=== PATIENT | female | born 1965 | race Caucasian/White ===

== ENCOUNTER → 2020-05-10 | Outpatient (CLI) | payer MEDICARE, SELFPAY ==
[~2020-05-10] MED LIST: AMBIEN5 MG PO; ASPIRIN CHEWABL81 MG PO; ASPIRIN EC81 MG PO; BENTYL 10MG CAP10 MG PO; CLOPIDOGREL75 MG PO; CRESTOR 10 MG T10 MG PO; CYMBALTA60 MG PO; FISH OIL EC 1,1 EACH PO; KEFLEX CAP 500500 MG PO; LIPITOR TAB 2020 MG PO; NOVOLOG FL100 UNIT/1 SQ; NOVOLOG MI100 UNIT/1 SC; PLAVIX 75 MG TA75 MG PO; TRESIBA FL100 UNIT/1 SQ
== END ==
LOC: WCC 08:20
PROC: 0KBW0ZZ Excision of Left Foot Muscle, Open Approach (ICD-10-PCS; principal; 2020-05-10)
DX: E11.621 Type 2 diabetes mellitus with foot ulcer (principal); L97.423 Non-pressure chronic ulcer of left heel and midfoot with necrosis of muscle; E11.52 Type 2 diabetes mellitus with diabetic peripheral angiopathy with gangrene; I96 Gangrene, not elsewhere classified; E11.69 Type 2 diabetes mellitus with other specified complication; M86.8X9 Other osteomyelitis, unspecified sites; E11.610 Type 2 diabetes mellitus with diabetic neuropathic arthropathy; I70.244 Atherosclerosis of native arteries of left leg with ulceration of heel and midfoot; L84 Corns and callosities; F17.218 Nicotine dependence, cigarettes, with other nicotine-induced disorders; M19.90 Unspecified osteoarthritis, unspecified site; Z79.4 Long term (current) use of insulin; Z79.02 Long term (current) use of antithrombotics/antiplatelets; Z79.2 Long term (current) use of antibiotics; Z79.899 Other long term (current) drug therapy

== ENCOUNTER → 2020-05-17 | Outpatient (CLI) | payer MEDICARE, SELFPAY | LOC: WCC 08:00 | PROC: 0JBR0ZZ Excision of Left Foot Subcutaneous Tissue and Fascia, Open Approach (ICD-10-PCS; principal; 2020-05-17) | DX: E11.621 Type 2 diabetes mellitus with foot ulcer (principal); L97.422 Non-pressure chronic ulcer of left heel and midfoot with fat layer exposed; E11.52 Type 2 diabetes mellitus with diabetic peripheral angiopathy with gangrene; I96 Gangrene, not elsewhere classified; E11.610 Type 2 diabetes mellitus with diabetic neuropathic arthropathy; I70.245 Atherosclerosis of native arteries of left leg with ulceration of other part of foot; F17.218 Nicotine dependence, cigarettes, with other nicotine-induced disorders; L84 Corns and callosities; M19.90 Unspecified osteoarthritis, unspecified site; E11.69 Type 2 diabetes mellitus with other specified complication; M86.8X9 Other osteomyelitis, unspecified sites; Z79.4 Long term (current) use of insulin; Z79.2 Long term (current) use of antibiotics; Z79.02 Long term (current) use of antithrombotics/antiplatelets; Z79.899 Other long term (current) drug therapy ==

== ENCOUNTER → 2020-05-24 | Outpatient (CLI) | payer MEDICARE, OTHER | LOC: WCC 08:00 | DX: E11.621 Type 2 diabetes mellitus with foot ulcer (principal); L97.521 Non-pressure chronic ulcer of other part of left foot limited to breakdown of skin; E11.42 Type 2 diabetes mellitus with diabetic polyneuropathy; I70.245 Atherosclerosis of native arteries of left leg with ulceration of other part of foot; L97.529 Non-pressure chronic ulcer of other part of left foot with unspecified severity; F17.210 Nicotine dependence, cigarettes, uncomplicated; L84 Corns and callosities; L97.428 Non-pressure chronic ulcer of left heel and midfoot with other specified severity; Z79.4 Long term (current) use of insulin | CPT/HCPCS: 97597 ==

== ENCOUNTER → 2020-05-26 | Outpatient (CLI) | payer MEDICARE | LOC: OPSV 05-25 15:00 | DX: M86.9 Osteomyelitis, unspecified (principal) | CPT/HCPCS: 96365; J1335 ==

== ENCOUNTER → 2020-05-27 | Outpatient (CLI) | payer MEDICARE | LOC: OPSV 08:03 | DX: M86.9 Osteomyelitis, unspecified (principal) | CPT/HCPCS: 96365; J1335 ==

== ENCOUNTER → 2020-05-29 | Outpatient (CLI) | payer MEDICARE, OTHER ==
[~2020-05-29] VITALS: Ht 170.2 cm; Wt 53.5 kg
== END ==
LOC: OPSV 07:58
DX: M86.9 Osteomyelitis, unspecified (principal)
CPT/HCPCS: 96365; J1335

== ENCOUNTER → 2020-05-30 | Outpatient (CLI) | payer MEDICARE, SELFPAY ==
[~2020-05-30] VITALS: Ht 170.2 cm; Wt 53.5 kg
== END ==
LOC: OPSV 07:55
DX: M86.9 Osteomyelitis, unspecified (principal)
CPT/HCPCS: 96365; J1335

== ENCOUNTER → 2020-05-31 | Outpatient (CLI) | payer MEDICARE, OTHER ==
[~2020-05-31] VITALS: Ht 170.2 cm; Wt 53.5 kg
== END ==
LOC: OPSV 06:40
DX: M86.9 Osteomyelitis, unspecified (principal)
CPT/HCPCS: 96365; J1335

== ENCOUNTER → 2020-05-31 | Outpatient (CLI) | payer MEDICARE, OTHER | LOC: WCC 08:00 | PROC: 0JBR0ZZ Excision of Left Foot Subcutaneous Tissue and Fascia, Open Approach (ICD-10-PCS; principal; 2020-05-31) | DX: E11.621 Type 2 diabetes mellitus with foot ulcer (principal); L97.422 Non-pressure chronic ulcer of left heel and midfoot with fat layer exposed; E11.610 Type 2 diabetes mellitus with diabetic neuropathic arthropathy; I70.245 Atherosclerosis of native arteries of left leg with ulceration of other part of foot; Z79.4 Long term (current) use of insulin; F17.210 Nicotine dependence, cigarettes, uncomplicated; L84 Corns and callosities ==

== ENCOUNTER → 2020-06-01 | Outpatient (CLI) | payer MEDICARE, SELFPAY ==
[2020-06-01 07:16] LABS: HEMOGLOBIN 11.3 gm/dl (12.3-15.3); RED BLOOD COUNT 3.95 M/UL (4.00-5.10); WHITE BLOOD COUNT 7.3 K/UL (4.5-11.0)
== END ==
LOC: OPSV 06:41
DX: M86.9 Osteomyelitis, unspecified (principal); R94.4 Abnormal results of kidney function studies; E87.5 Hyperkalemia; R94.5 Abnormal results of liver function studies
CPT/HCPCS: 80053; 85027; 96365; J1335

== ENCOUNTER → 2020-06-02 | Outpatient (CLI) | payer MEDICARE, OTHER | LOC: OPSV 06:43 | DX: M86.9 Osteomyelitis, unspecified (principal) | CPT/HCPCS: 96365; J1335 ==

== ENCOUNTER → 2020-06-04 | Outpatient (CLI) | payer MEDICARE, SELFPAY | LOC: EMI 08:41 | DX: R94.02 Abnormal brain scan (principal); I67.82 Cerebral ischemia; G93.5 Compression of brain | CPT/HCPCS: 70553; A9576 ==

== ENCOUNTER → 2020-06-07 | Outpatient (CLI) | payer MEDICARE, SELFPAY, OTHER | LOC: WCC 07:54 | PROC: 0JBR0ZZ Excision of Left Foot Subcutaneous Tissue and Fascia, Open Approach (ICD-10-PCS; principal; 2020-06-07) | DX: E11.621 Type 2 diabetes mellitus with foot ulcer (principal); L97.422 Non-pressure chronic ulcer of left heel and midfoot with fat layer exposed; E11.610 Type 2 diabetes mellitus with diabetic neuropathic arthropathy; I70.245 Atherosclerosis of native arteries of left leg with ulceration of other part of foot; E11.51 Type 2 diabetes mellitus with diabetic peripheral angiopathy without gangrene; Z79.4 Long term (current) use of insulin; F17.210 Nicotine dependence, cigarettes, uncomplicated; L84 Corns and callosities ==

== ENCOUNTER → 2020-06-14 | Outpatient (CLI) | payer MEDICARE, SELFPAY | LOC: WCC 07:55 | PROC: 0JBR0ZZ Excision of Left Foot Subcutaneous Tissue and Fascia, Open Approach (ICD-10-PCS; principal; 2020-06-14) | DX: E11.621 Type 2 diabetes mellitus with foot ulcer (principal); L97.422 Non-pressure chronic ulcer of left heel and midfoot with fat layer exposed; E11.52 Type 2 diabetes mellitus with diabetic peripheral angiopathy with gangrene; I70.262 Atherosclerosis of native arteries of extremities with gangrene, left leg; E11.610 Type 2 diabetes mellitus with diabetic neuropathic arthropathy; F17.218 Nicotine dependence, cigarettes, with other nicotine-induced disorders; L84 Corns and callosities; E11.69 Type 2 diabetes mellitus with other specified complication; M86.8X9 Other osteomyelitis, unspecified sites; M19.90 Unspecified osteoarthritis, unspecified site; E11.40 Type 2 diabetes mellitus with diabetic neuropathy, unspecified; Z79.4 Long term (current) use of insulin; Z79.02 Long term (current) use of antithrombotics/antiplatelets; Z79.2 Long term (current) use of antibiotics; Z79.899 Other long term (current) drug therapy ==

== ENCOUNTER → 2020-06-21 | Outpatient (CLI) | payer MEDICARE, SELFPAY, OTHER | LOC: WCC 08:00 | DX: E11.621 Type 2 diabetes mellitus with foot ulcer (principal); L97.422 Non-pressure chronic ulcer of left heel and midfoot with fat layer exposed; E11.610 Type 2 diabetes mellitus with diabetic neuropathic arthropathy; I70.245 Atherosclerosis of native arteries of left leg with ulceration of other part of foot; L84 Corns and callosities; L97.428 Non-pressure chronic ulcer of left heel and midfoot with other specified severity; E11.51 Type 2 diabetes mellitus with diabetic peripheral angiopathy without gangrene; Z79.4 Long term (current) use of insulin; F17.218 Nicotine dependence, cigarettes, with other nicotine-induced disorders; Z79.899 Other long term (current) drug therapy; Z79.02 Long term (current) use of antithrombotics/antiplatelets ==

== ENCOUNTER → 2020-06-28 | Outpatient (CLI) | payer MEDICARE, SELFPAY | LOC: WCC 07:59 | PROC: 0JBR0ZZ Excision of Left Foot Subcutaneous Tissue and Fascia, Open Approach (ICD-10-PCS; principal; 2020-06-28) | DX: E11.621 Type 2 diabetes mellitus with foot ulcer (principal); L97.422 Non-pressure chronic ulcer of left heel and midfoot with fat layer exposed; E11.52 Type 2 diabetes mellitus with diabetic peripheral angiopathy with gangrene; I70.244 Atherosclerosis of native arteries of left leg with ulceration of heel and midfoot; I96 Gangrene, not elsewhere classified; E11.610 Type 2 diabetes mellitus with diabetic neuropathic arthropathy; L84 Corns and callosities; E11.69 Type 2 diabetes mellitus with other specified complication; M86.8X9 Other osteomyelitis, unspecified sites; Z79.4 Long term (current) use of insulin; Z79.02 Long term (current) use of antithrombotics/antiplatelets; Z79.2 Long term (current) use of antibiotics; Z79.899 Other long term (current) drug therapy ==

== ENCOUNTER → 2020-07-05 | Outpatient (CLI) | payer MEDICARE, SELFPAY | LOC: WCC 07:58 | PROC: 0KBW0ZZ Excision of Left Foot Muscle, Open Approach (ICD-10-PCS; principal; 2020-07-05) | DX: E11.621 Type 2 diabetes mellitus with foot ulcer (principal); L97.423 Non-pressure chronic ulcer of left heel and midfoot with necrosis of muscle; E11.52 Type 2 diabetes mellitus with diabetic peripheral angiopathy with gangrene; I96 Gangrene, not elsewhere classified; I70.244 Atherosclerosis of native arteries of left leg with ulceration of heel and midfoot; E11.610 Type 2 diabetes mellitus with diabetic neuropathic arthropathy; L84 Corns and callosities; M19.90 Unspecified osteoarthritis, unspecified site; E11.69 Type 2 diabetes mellitus with other specified complication; M86.8X9 Other osteomyelitis, unspecified sites; Z79.4 Long term (current) use of insulin; Z79.02 Long term (current) use of antithrombotics/antiplatelets; Z79.2 Long term (current) use of antibiotics; Z79.899 Other long term (current) drug therapy ==

== ENCOUNTER → 2020-07-19 | Outpatient (CLI) | payer MEDICARE, SELFPAY | LOC: WCC 07:58 | DX: E11.621 Type 2 diabetes mellitus with foot ulcer (principal); L97.421 Non-pressure chronic ulcer of left heel and midfoot limited to breakdown of skin; E11.610 Type 2 diabetes mellitus with diabetic neuropathic arthropathy; F17.210 Nicotine dependence, cigarettes, uncomplicated; I73.9 Peripheral vascular disease, unspecified; Z79.4 Long term (current) use of insulin ==

== ENCOUNTER → 2020-08-02 | Outpatient (CLI) | payer MEDICARE, SELFPAY | LOC: WCC 11:30 | DX: E11.621 Type 2 diabetes mellitus with foot ulcer (principal); L97.422 Non-pressure chronic ulcer of left heel and midfoot with fat layer exposed; E11.610 Type 2 diabetes mellitus with diabetic neuropathic arthropathy; I70.245 Atherosclerosis of native arteries of left leg with ulceration of other part of foot; F17.218 Nicotine dependence, cigarettes, with other nicotine-induced disorders; L84 Corns and callosities; Z79.4 Long term (current) use of insulin | CPT/HCPCS: 97597 ==

== ENCOUNTER → 2020-11-09 | Outpatient (CLI) | payer MEDICARE, OTHER | LOC: WCC 11:00 | DX: E11.621 Type 2 diabetes mellitus with foot ulcer (principal); L97.522 Non-pressure chronic ulcer of other part of left foot with fat layer exposed; E11.610 Type 2 diabetes mellitus with diabetic neuropathic arthropathy; E11.51 Type 2 diabetes mellitus with diabetic peripheral angiopathy without gangrene; F17.218 Nicotine dependence, cigarettes, with other nicotine-induced disorders; L84 Corns and callosities; Z79.4 Long term (current) use of insulin; Z79.2 Long term (current) use of antibiotics; Z79.899 Other long term (current) drug therapy | CPT/HCPCS: 87070; 87077; 87186; 87205; G0463 ==

== ENCOUNTER → 2020-11-16 | Outpatient (CLI) | payer MEDICARE, OTHER | LOC: WCC 13:15 | DX: E11.621 Type 2 diabetes mellitus with foot ulcer (principal); L97.422 Non-pressure chronic ulcer of left heel and midfoot with fat layer exposed; E11.610 Type 2 diabetes mellitus with diabetic neuropathic arthropathy; I73.9 Peripheral vascular disease, unspecified; L84 Corns and callosities; Z79.4 Long term (current) use of insulin; Z79.899 Other long term (current) drug therapy; Z79.2 Long term (current) use of antibiotics; F17.218 Nicotine dependence, cigarettes, with other nicotine-induced disorders | CPT/HCPCS: 97597 ==

== ENCOUNTER → 2020-11-23 | Outpatient (CLI) | payer MEDICARE, SELFPAY ==
[~2020-11-23] MED LIST changes: +AMBIEN10 MG PO; +BENTYL 20MG TAB20 MG PO; +HYDROCODON-ACE1 EAC2 PO; +HYDROCODON-ACE1 EAC6 PO; +IBU800 MG PO; +NOVOLOG FL100 UNIT/1 SC; -NOVOLOG FL100 UNIT/1 SQ; +ZOFRAN ODT 4 MG4 MG PO; +ZOFRAN4 MG PO
== END ==
LOC: WCC 08:00
DX: E11.621 Type 2 diabetes mellitus with foot ulcer (principal); L97.422 Non-pressure chronic ulcer of left heel and midfoot with fat layer exposed; E11.610 Type 2 diabetes mellitus with diabetic neuropathic arthropathy; E11.51 Type 2 diabetes mellitus with diabetic peripheral angiopathy without gangrene; F17.218 Nicotine dependence, cigarettes, with other nicotine-induced disorders; L84 Corns and callosities; Z79.4 Long term (current) use of insulin
CPT/HCPCS: 97597

== ENCOUNTER → 2020-11-23 | Outpatient (CLI) | payer MEDICARE, OTHER | LOC: RAD 09:14 | DX: E11.621 Type 2 diabetes mellitus with foot ulcer (principal); L97.529 Non-pressure chronic ulcer of other part of left foot with unspecified severity | CPT/HCPCS: 73620 ==

== ENCOUNTER → 2020-12-01 | Outpatient (CLI) | payer MEDICARE, SELFPAY | LOC: WCC 08:11 | DX: E11.621 Type 2 diabetes mellitus with foot ulcer (principal); L97.521 Non-pressure chronic ulcer of other part of left foot limited to breakdown of skin; E11.610 Type 2 diabetes mellitus with diabetic neuropathic arthropathy; E11.51 Type 2 diabetes mellitus with diabetic peripheral angiopathy without gangrene; F17.218 Nicotine dependence, cigarettes, with other nicotine-induced disorders; L84 Corns and callosities; Z79.4 Long term (current) use of insulin; Z79.899 Other long term (current) drug therapy ==

== ENCOUNTER → 2020-12-22 | Outpatient (CLI) | payer MEDICARE, SELFPAY | LOC: WCC 08:37 | DX: E11.621 Type 2 diabetes mellitus with foot ulcer (principal); L97.422 Non-pressure chronic ulcer of left heel and midfoot with fat layer exposed; E11.610 Type 2 diabetes mellitus with diabetic neuropathic arthropathy; I73.9 Peripheral vascular disease, unspecified; Z79.4 Long term (current) use of insulin; F17.218 Nicotine dependence, cigarettes, with other nicotine-induced disorders; L84 Corns and callosities | CPT/HCPCS: G0463 ==

== ENCOUNTER 2021-02-10 05:35 | Emergency (ER) | payer MEDICARE ==
[~2021-02-10 05:35] MED LIST changes: -AMBIEN10 MG PO; -BENTYL 20MG TAB20 MG PO; -HYDROCODON-ACE1 EAC2 PO; -HYDROCODON-ACE1 EAC6 PO; -IBU800 MG PO; -NOVOLOG FL100 UNIT/1 SC; +NOVOLOG FL100 UNIT/1 SQ; -ZOFRAN ODT 4 MG4 MG PO; -ZOFRAN4 MG PO
[2021-02-10 06:47] LABS: HEMOGLOBIN 12.5 gm/dl (12.3-15.3); RED BLOOD COUNT 3.86 M/UL (4.00-5.10); WHITE BLOOD COUNT 10.6 K/UL (4.5-11.0)
[2021-02-10 07:24] LABS: BUN/CREATININE RATIO 15 (0-10)
[2021-02-10] MEDS ORDERED: IBU800 MG PO (12:37)
[2021-02-10] MEDS ORDERED: ZOFRAN ODT 4 MG4 MG PO (12:37)
[2021-02-10] MEDS ORDERED: HYDROCODON-ACE1 EAC2 PO (12:50)
== END 2021-02-10 13:10 | disposition home or self-care (01) ==
LOC: ER1 05:35
PROVIDERS: Nurse Practitioner
DX: S42.202A Unspecified fracture of upper end of left humerus, initial encounter for closed fracture (principal); R55 Syncope and collapse; E11.9 Type 2 diabetes mellitus without complications; F17.210 Nicotine dependence, cigarettes, uncomplicated; X58.XXXA Exposure to other specified factors, initial encounter
CPT/HCPCS: 70450; 71045; 72125; 73030; 73060; 73200; 80053; 82550; 82553; 82962; 83874; 84484; 85025; 93005; 96374; 96376; 99284; J1170; J2270; J2405

== ENCOUNTER 2021-07-06 13:03 | Emergency (ER) | payer MEDICARE ==
[~2021-07-06 13:03] MED LIST changes: +AMBIEN10 MG PO; +BENTYL 20MG TAB20 MG PO; +HYDROCODON-ACE1 EAC2 PO; +HYDROCODON-ACE1 EAC6 PO; +IBU800 MG PO; +NOVOLOG FL100 UNIT/1 SC; -NOVOLOG FL100 UNIT/1 SQ; +ZOFRAN ODT 4 MG4 MG PO; +ZOFRAN4 MG PO
== END 2021-07-06 14:40 | disposition left against medical advice (07) ==
LOC: ER1 13:03
DX: Z53.21 Procedure and treatment not carried out due to patient leaving prior to being seen by health care provider (principal)